=== PATIENT | female | born 1940 | race Caucasian/White ===

== ENCOUNTER 2017-11-17 11:36 | Emergency (ER) | payer OTHER ==
[~2017-11-17] VITALS: Ht 139.7 cm; Wt 49.9 kg
[2017-11-17] MEDS ORDERED: EXFORGE HCT 5-1 EACH (12:12)
== END 2017-11-17 15:40 | disposition home or self-care (01) ==
LOC: ER 11:36
DX: I82.4Z3 Acute embolism and thrombosis of unspecified deep veins of distal lower extremity, bilateral (principal); R60.0 Localized edema; L30.8 Other specified dermatitis